=== PATIENT | female | born 1995 | race Caucasian/White ===

== ENCOUNTER 2019-12-25 15:47 | Outpatient (CLI) | payer OTHER, SELFPAY ==
--- NOTE | ~2019-12-25 | US_ITS ---
EXAMINATION:US venous doppler LE RT INDICATION:Right calf pain TECHNIQUE: Multiple grayscale, color flow and Doppler images of the right lower extremity deep venous systems were obtained and reviewed. COMPARISON:No prior studies for comparison. FINDINGS: The common femoral, superficial femoral and popliteal veins demonstrate normal respiratory variation, augmentation and compressibility. Color flow is also seen within the posterior tibial, pe roneal, greater saphenous and profunda veins. IMPRESSION: 1: No lower extremity deep venous thrombosis. Reviewed, dictated and finalized at location A.
== END 2019-12-25 15:48 | disposition home or self-care (01) ==
LOC: ANHIMG 15:53
PROVIDERS: PCP Nurse Practitioner Family; Visit Provider Nurse Practitioner Family
DX: M79.661 Pain in right lower leg (principal)
CPT/HCPCS: 93971

== ENCOUNTER 2021-06-30 11:43 | Outpatient (CLI) | payer BC, SELFPAY ==
--- NOTE | ~2021-06-30 | US_ITS ---
US OB <=14 wk fetus w TV DATE: 06/30/2021 12:34 INDICATION: Vaginal spotting starting today TECHNIQUE: Real-time imaging and Doppler analysis COMPARISON: None FINDINGS: The uterus measures 3.3 cm height, 5.8 cm AP and 6.7 cm transverse dimension. A normally shaped intrauterine gestational sac is identified. pole is detected with heart rate of 171 bpm. Yolk sac is identified. [place]-rump length averages 2.25 cm, consistent with 9 weeks +/- 6 days estimated gestational age, con sistent with VIDAL of 02/02/2022. No subchorionic abnormal fluid collection is noted. Right ovary measures 2.4 x 1.7 x 1.1 cm Left ovary measures 3.8 x 2.4 x 2.5 cm and contains a 2.9 x 1.7 x 1.8 cm cyst. No pelvic mass or abnormal pelvic free fluid collection is noted. IMPRESSION: Normal-appearing early intrauterine gestation Estimated gestational age of 9 weeks +/- 6 days; VIDAL: 02/02/2022 2.9 x 1.7 x 1.8 cm left ovarian cyst Reviewed, dictated and finalized at Location A. 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
== END 2021-06-30 11:44 | disposition home or self-care (01) ==
LOC: ANHIMG 11:47
PROVIDERS: PCP Nurse Practitioner Family; Visit Provider Obstetrics & Gynecology
DX: O20.9 Hemorrhage in early pregnancy, unspecified (principal); Z3A.00 Weeks of gestation of pregnancy not specified
CPT/HCPCS: 36415; 76801; 76817; 86850; 86900; 86901

== ENCOUNTER 2021-11-12 18:20 | Observation (INO) | payer BC, SELFPAY ==
[2021-11-12 18:45] VITALS: BP 128/76; PULSE 84
[2021-11-12 19:00] VITALS: BP 119/59; PULSE 79
[2021-11-12 19:16] VITALS: BP 128/50; PULSE 88
--- NOTE | 2021-11-12 19:27 | PC.NURSE ---
Dr Gleason notified of post fall, reactive tracing and no contractions or c/o at this time. Ok to dc home after one hour of monitoring.
[2021-11-12 19:30] VITALS: BP 104/65; PULSE 74
--- NOTE | 2021-12-03 10:46 | PM.OBTRLD ---
OB - Triage/Final Diagnosis Visit Information Comments/Additional reasons for admission: I have assessed the risk for this patient, Clarita Lebron, and determined that she would benefit from observation care. Final Diagnosis (1) Status post fall: Code(s): Z91.81 - History of falling Status: Acute
== END 2021-11-12 19:41 | disposition home or self-care (01) ==
PROVIDERS: Admitting Provider Obstetrics & Gynecology; PCP Nurse Practitioner Family; Visit Provider Obstetrics & Gynecology
DX: O9A.219 Injury, poisoning and certain other consequences of external causes complicating pregnancy, unspecified trimester (principal); Z3A.00 Weeks of gestation of pregnancy not specified; W19.XXXA Unspecified fall, initial encounter
CPT/HCPCS: G0378; G0379

== ENCOUNTER 2022-01-15 15:53 | Observation (INO) | payer BC, SELFPAY ==
--- NOTE | 2022-01-15 16:00 | OBADM ---
This patient, Clarita Lebron, admitted to the OB room Labor/Delivery/Recovery 120 for observation. Patient/family oriented to hospital policies and general routines including ID bracelet, bed and alarms, visiting hours, pain management, procedures, bathroom and other care routines, personal items, smoking policy, room service/diet, and visiting hours. Patient/Family are encouraged to report perceived risks to care and to ask questions if they do not understand what they are told or what they should do.
--- NOTE | 2022-02-21 22:37 | PM.OBTRLD ---
OB - Triage/Final Diagnosis Visit Information Reason for evaluation: threatened labor Comments/Additional reasons for admission: I have assessed the risk for this patient, Clarita Lebron, and determined that she would benefit from observation care.
== END 2022-01-15 17:27 | disposition home or self-care (01) ==
PROVIDERS: Admitting Provider Obstetrics & Gynecology; PCP Nurse Practitioner Family; Visit Provider Obstetrics & Gynecology
DX: O47.1 False labor at or after 37 completed weeks of gestation (principal); Z3A.37 37 weeks gestation of pregnancy
CPT/HCPCS: 84112; G0378; G0379

== ENCOUNTER 2022-01-17 06:32 | Outpatient (CLI) | payer BC, SELFPAY ==
[2022-01-17] VITALS (20 sets, daily range): BP systolic 113–143; BP diastolic 62–80; PULSE 77–106; O2SAT 94–100
[2022-01-17] MEDS: TERBUTALINE SULFATE 1 MG/ML VIAL 0.25 MG SUB-Q (08:28)
--- NOTE | 2022-01-17 08:30 | PC.NURSE ---
Dr. Gleason at the bedside discussing risk and benefits of external version. Ultrasound at the bedside. pt has no question at this time.
--- NOTE | 2022-01-25 07:05 | W.PM.PROC2 ---
Procedure Note - Detailed Date of Procedure 01/25/22 Pre-op Diagnosis Breech presentation Post-op Diagnosis Same Procedure Performed External cephalic version Surgeon Tahir Gleason MD Anesthesia None Indications Breech presentation Findings Infant confirmed in breech position immediately prior to procedure Description of Procedure Patient had a saline lock inserted. NST reactive. After informed consent obtained. Questions answered. She was offered spinal placement and discussed risk benefit of this and she declined. Bedside ultrasound confirms breech presentation. Head flexed in right upper quadrant. She was placed in position supine with head tilted down. She was given SQ .25mg terbutaline. The version was attempted and the head got to mid right side and reverted back to upper uterus. The heart rate was assessed throughout and noted to be normal. This was attempted two more times and no the head did not get past mid right lateral uterus. She was taken out of tilt position and monitored for an hour. tracing normal. She was discharged to home after over an hour of reassuring monitoring. Discussed post procedure precautions. kick count precautions. We discussed that we will discuss surgery date for for breech at her next visit. Complications No immediate complications Condition Stable Disposition No change [facility] Billing Surgery - Charge Forward: Surgery Billing
== END 2022-01-17 09:46 | disposition home or self-care (01) ==
LOC: ANHOBOP 06:37 → ANHLDR 06:37
PROVIDERS: PCP Nurse Practitioner Family; Visit Provider Obstetrics & Gynecology
DX: O32.1XX0 Maternal care for breech presentation, not applicable or unspecified (principal); Z3A.00 Weeks of gestation of pregnancy not specified
CPT/HCPCS: 59412; 96372; 99199; J3105

== ENCOUNTER 2022-01-24 10:38 | Outpatient (RCR) | payer BC, SELFPAY ==
[2022-01-24 11:25] VITALS: BP 128/65; PULSE 83
== END 2022-02-11 14:58 | disposition home or self-care (01) ==
LOC: ANHOBOP 10:38
PROVIDERS: PCP Nurse Practitioner Family; Visit Provider Obstetrics & Gynecology
DX: O26.86 Pruritic urticarial papules and plaques of pregnancy (PUPPP) (principal); Z3A.38 38 weeks gestation of pregnancy
CPT/HCPCS: 59025

== ENCOUNTER 2022-01-28 00:01 | Inpatient (IN) | payer BC, SELFPAY ==
[2022-01-28] VITALS (145 sets, daily range): BP systolic 95–161; BP diastolic 40–126; PULSE 59–142; RESP 16–18; TEMP 36.1–36.9; O2SAT 82–100; BMI 28.3
--- NOTE | 2022-01-28 00:27 | LDADM ---
This patient, Clarita Lebron, was admitted to Labor/Delivery/Recovery 103 on 01/28/22 at 00:01. Plans for labor, pain management and were discussed with patient. Patient/family oriented to hospital policies and general routines including ID bracelet, bed and alarms, visiting hours, pain management, procedures, bathroom and other care routines, personal items, smoking policy, room service/diet and guest tray routines, security routines, and visiting hours. Patient/Family are encouraged to report perceived risks to care and to ask questions if they do not understand what they are told or what they should do. See OBIX for further documentation.
--- NOTE | 2022-01-28 00:29 | P.PNAN_ITS ---
Anes - Eval Pre Procedure Procedure: labor epidural Date/Time: 01/28/22 00:29 Surgeon: judy Pre Op Diagnosis: IOL Patient Data Age: 26 Gender: F Height: Weight: Allergies Allergy/AdvReac Type Severity Reaction Status Date / Time No Known Allergies Allergy Verified 01/24/22 09:25 Home Medications Medication Instructions Recorded Confirmed Type prenat.vits,joyce,[id number] 1 tablet PO DAILY 06/30/21 01/23/22 History Patient hx anesthesia problems: none Family hx anesthesia problems: none Results Review: All pre-operative results and documents have been reviewed as part of the pre- operative evaluation. PMFSH Family History Family History Mother Breast cancer Grandparent Diabetes mellitus Social History Social History Smoking status: Never smoker Alcohol intake: never Substance use: never Spiritual care concerns: No Exam Day of Procedure 01/28/22 00:29
[2022-01-28] MEDS: AMPICILLIN 2 GM/NS 100 ML 2 GM/100 ML BAG IVPB (00:35)
[2022-01-28] MEDS: LACTATED RINGERS 1,000 ML 125 ML IV CONT ×3 (00:36→08:54)
[2022-01-28 00:39] LABS: Basophils Absolute Auto 0.1 K/mm3 (0.0-0.1); Basophils Percent Auto 0.4 % (0.2-1.2); Eosinophils Absolute Auto 0.3 K/mm3 (0-0.3); Eosinophils Percent Auto 2.1 % (0-4.4); Hematocrit 35.3 % (37.0-47.0); Hemoglobin 11.4 g/dL (12.0-15.0); Immature Granulocyte Absolute 0.08 K/mm3 (0.00-0.031); Immature Granulocyte Percent A 0.6 % (0-0.5); Lymphocytes Absolute Auto 2.36 K/mm3 (0.9-3.2); Lymphocytes Percent Auto 18.7 % (18.3-44.2); Mean Corpuscular HGB Conc 32.3 g/dl (32-36); Mean Corpuscular Hemoglobin 28.7 pg (26-34); Mean Corpuscular Volume 88.9 fl (80-100); Mean Platelet Volume 12.1 fl (7.4-10.4); Monocytes Absolute Auto 0.8 K/mm3 (0.1-0.6); Monocytes Percent Auto 6.2 % (2.6-8.5); Neutrophils Absolute Auto 9.1 K/mm3 (1.3-6.7); Platelet Count Result 201 k/mm3 (150-375); Red Blood Count 3.97 M/mm3 (4.2-5.4); Red Cell Distribution Width 14.6 % (11.5-14.5); White Blood Count 12.6 K/mm3 (4.5-10.0)
[2022-01-28] MEDS: OXYTOCIN 30 UNITS/NS 500 ML 30 UNITS/500 ML BAG IV CONT (01:05)
[2022-01-28] MEDS: AMPICILLIN 1 GM/NS 50 ML 1 GM/50 ML BAG IVPB ×3 (04:28→12:30)
[2022-01-28] MEDS: diphenhydrAMINE HCl CAP 25 MG CAPSULE PO (04:57)
[2022-01-28] MEDS: fentaNYL CITRATE INJ (*CRX) 100 MCG/2 ML VIAL 50 MCG IV PUSH (07:36)
--- NOTE | 2022-01-28 08:46 | PM.IMHP ---
H&P: HPI History of Present Illness Date/Time: 01/28/22 08:46 Chief Complaint: Medical induction of labor Narrative: Patient is a G1 at 39 weeks by LMP 04/30/2021 with an EDC 02/04/2022 consistent with an 8 week ultrasound, admitted for MIL. PNC significant for single umbilical artery. She has been getting growth ultrasounds which have showed normal growth. She was breech last week. She had an unsuccessful version and then converted to vertex several days after attempted ECV. PNC also significant for PUPPS. Diagnosed last week. She has had reassuring tracing. Discussed risk benefits of induction. Labs reviewed. GBS positive. She has been informed of risks benefits of induction of labor and desires to proceed to induction at 39 weeks. Bedside ultrasound performed and confirmed vertex. Review of Systems Review of Systems: All systems reviewed & are unremarkable except as noted in HPI and below Constitutional: Constitutional: Reports no additional constitutional complaints and Denies headache(s) Eyes: Eyes: Denies spots in vision ENT: Reports system reviewed and no additional complaints, except as documented and Denies headache(s) Cardiovascular: Cardiovascular: Denies chest pain and Denies dyspnea Respiratory: Respiratory: Denies dyspnea Gastrointestinal: Gastrointestinal: Reports no additional gastrointestinal complaints Genitourinary: Genitourinary: Reports amenorrhea Musculoskeletal: Musculoskeletal: Reports no additional musculoskeletal complaints Integumentary/Breasts: Skin/Breast: Denies breast mass and Reports rash Neurologic: Denies headache(s) Psychiatric: Psychiatric: Reports no additional psychiatric complaints [facility] Family History Family History Mother Breast cancer Grandparent Diabetes mellitus Social History Social History Smoking status: Never smoker Second hand tobacco smoke exposure: No Alcohol intake: never Substance use: never Spiritual care concerns: No Meds Home Medications and Allergies Home Medications Medication Instructions Recorded Confirmed Type prenat.vits,joyce,[id number] 1 tablet PO DAILY 06/30/21 01/28/22 History Allergies Allergy/AdvReac Type Severity Reaction Status Date / Time No Known Allergies Allergy Verified 01/24/22 09:25 Vital Signs Vital Signs - 24 hr 01/28/22 00:49 01/28/22 01:01 01/28/22 01:08 Temperature 96.9 F L Pulse Rate 75 81 Blood Pressure 133/71 129/71 Pulse Oximetry 01/28/22 01:00 01/28/22 02:01 01/28/22 03:00 Temperature 98.3 F Pulse Rate 71 68 Blood Pressure 111/40 L 106/55 L Pulse Oximetry 01/28/22 04:00 01/28/22 05:00 01/28/22 05:01 Temperature 97.3 F L Pulse Rate 70 83 Blood Pressure 121/77 116/64 Pulse Oximetry 01/28/22 06:00 01/28/22 07:00 01/28/22 07:18 Temperature Pulse Rate 78 70 74 Blood Pressure 114/58 L 122/64 129/76 Pulse Oximetry 01/28/22 07:31 01/28/22 07:45 01/28/22 07:51 Temperature Pulse Rate 77 78 Blood Pressure 117/67 128/78 Pulse Oximetry 96 01/28/22 07:56 01/28/22 08:00 01/28/22 08:01 Temperature Pulse Rate 87 Blood Pressure 141/89 H Pulse Oximetry 92 100 01/28/22 08:02 01/28/22 08:03 01/28/22 08:06 Temperature Pulse Rate 92 98 80 Blood Pressure 145/71 H 139/92 H 141/67 H Pulse Oximetry 99 01/28/22 08:08 01/28/22 08:11 01/28/22 08:13 Temperature Pulse Rate 70 67 76 Blood Pressure 145/67 H 144/67 H 143/71 H Pulse Oximetry 100 01/28/22 08:16 01/28/22 08:18 01/28/22 08:21 Temperature Pulse Rate 75 73 68 Blood Pressure 140/69 140/65 147/77 H Pulse Oximetry 100 99 01/28/22 08:24 01/28/22 08:25 01/28/22 08:26 Temperature Pulse Rate 72 72 Blood Pressure 117/41 L 140/70 Pulse Oximetry 100 01/28/22 08:28 01/28/22 08:31 01/28/22 08:33 Temperature
[2022-01-28 11:30] LABS: Rapid Plasma Reagin Non-Reactive (NonReactive)
[2022-01-28] MEDS: SODIUM CHLORIDE 0.9% IV 300 ML 600 ML I-UTERINE (11:31)
--- NOTE | 2022-01-28 13:03 | PM.OBPNVD ---
OB - PN: Subj Subjective Date/time seen: 01/28/22 13:03 Interval history: fht 130 cat 1 ctx freq, IUPC requested due to inadequate monitoring of ctx with toco. AROM cervix /2, clear fluid. IUPC placed. OB - PN: Obj Data Labs CBC & Chem 7: 01/28/22 00:23 Labs: Laboratory Results - last 24 hr 01/28/22 01/28/22 01/28/22 00:23 00:23 00:23 WBC 12.6 H RBC 3.97 L Hgb 11.4 L Hct 35.3 L MCV 88.9 MCH 28.7 MCHC 32.3 RDW 14.6 H Plt Count 201 MPV 12.1 H Immature Gran % (Auto) 0.6 H Neut % (Auto) 72.0 Lymph % (Auto) 18.7 [place] % (Auto) 6.2 Eos % (Auto) 2.1 Baso % (Auto) 0.4 Lymph # (Auto) 2.36 Boundary # (Auto) 0.8 H Eos # (Auto) 0.3 Baso # (Auto) 0.1 Abs Immat Gran (auto) 0.08 H Absolute Neuts (auto) 9.1 H Absolute Nucleated RBC 0.0 Nucleated RBC % 0.0 RPR Non-reactive Blood Type A Positive Antibody Screen Negative OB - PN A/P Time Spent With Patient Time: Total time spent is greater than 50% in coordination of care (as documented) at patient's floor/unit and/or counseling patient:
--- NOTE | 2022-01-28 13:48 | PM.OBPNVD ---
OB - PN: Subj Subjective Date/time seen: 01/28/22 13:48 Interval history: I was called around noon due to moderate varible, cat 2, pt not on pit, has changed position. She is progressing. Approximately 1245 instructed to give patient O2. She continued to get the moderate variable, Cat 2. She was then checked and was rim. OB - PN: Obj Data Labs CBC & Chem 7: 01/28/22 00:23 Labs: Laboratory Results - last 24 hr 01/28/22 01/28/22 01/28/22 00:23 00:23 00:23 WBC 12.6 H RBC 3.97 L Hgb 11.4 L Hct 35.3 L MCV 88.9 MCH 28.7 MCHC 32.3 RDW 14.6 H Plt Count 201 MPV 12.1 H Immature Gran % (Auto) 0.6 H Neut % (Auto) 72.0 Lymph % (Auto) 18.7 [place] % (Auto) 6.2 Eos % (Auto) 2.1 Baso % (Auto) 0.4 Lymph # (Auto) 2.36 [place] # (Auto) 0.8 H Eos # (Auto) 0.3 Baso # (Auto) 0.1 Abs Immat Gran (auto) 0.08 H Absolute Neuts (auto) 9.1 H Absolute Nucleated RBC 0.0 Nucleated RBC % 0.0 RPR Non-reactive Blood Type A Positive Antibody Screen Negative OB - PN A/P Time Spent With Patient Time: Total time spent is greater than 50% in coordination of care (as documented) at patient's floor/unit and/or counseling patient:
--- NOTE | 2022-01-28 14:39 | PM.OBPRVD ---
OB - Delivery Note Procedure Delivery date: 01/28/22 Procedure: Procedures Operation Date: 02/04/22 09:00 <No data on this case meets the specified criteria> spontaneous vaginal delivery Events: Positive Group B Strep (GBS) and Other (single umbilical artery, PUPPS) Induction method: Per Pitocin Protocol Delivery augmentation: Rupture of Membranes Delivery monitor: External FHT and Internal Uterine Route of delivery: Episiotomy description: None Laceration Description: Labial (sulcus laceration requiring simple suture of 3.0 vicryl for hemostasis, hemostasis noted) Delivery repair: vicryl (3.0 vicry) Specimen: Yes (placenta and cord) Quantitative Blood Loss (ml): 150 Anesthesia type: Epidural Disposition: Floor Narrative: She was admitted for induction after midnight on 01/28. She had pitocin induction of labor. She had AROM the morning of 01/28. Her pitocin had been discontinued prior to this due to intolerance and she continued to contract and dilate spontaneously. Tracing was Cat 2, she progressed into active labor, she had some variable decels with spontaneous contractions, position changed, and O2 placed and she was soon complete. She pushed well and delivered a female infant. Baby Date of : 01/28/22 Time of : 14:19 Weeks of gestation at delivery: 39 Infant gender: Female Weight (pounds): 6 Weight (ounces): 8 presentation: compound (right hand) position: Right Occiput Anterior Placenta delivery description: Spontaneous Cord Vessel Description: 2 Vessels score one minute: 8 score five minutes: 8
[2022-01-28] MEDS: OXYTOCIN 30 UNITS/NS 500 ML 30 UNITS/500 ML BAG 125 UNITS IV CONT (15:02)
--- NOTE | 2022-01-28 15:48 | PC.NURSE ---
1548--Nipple shield provided to mother due to small nipple and 's inability to latch despite multiple attempts. Reviewed good handwashing, cleaning the nipple shield and application. Discussed with mom the nipple shield precautions, possible complications associated with the risks and benefits. Reviewed practicing with a nipple shield, then without and how to protect the milk supply and production. Mom and baby guide referred to as a resource for using a nipple shield. Mom voiced understanding of the importance of hand expression, nipple stimulation and initiating a pumping schedule if continues to nurse with the shield.
--- NOTE | 2022-01-28 17:20 | PC.NURSE ---
Patient transferred to post room #292 via wheelchair. Support person present. Oriented to unit, room, information board, rooming in, admission packet and security measures. Patient verbalizes understanding.
[2022-01-28] MEDS: IBUPROFEN 600 MG TABLET PO (17:52)
[2022-01-29] MEDS: IBUPROFEN 600 MG TABLET PO ×3 (00:13→15:44)
[2022-01-29 05:30] VITALS: BP 115/63; PULSE 79; RESP 16; TEMP 36.5; O2SAT 100
[2022-01-29 06:26] LABS: Hematocrit 29.1 % (37.0-47.0); Hemoglobin 9.3 g/dL (12.0-15.0)
[2022-01-29 08:00] VITALS: PULSE 16; RESP 16; O2SAT 99
[2022-01-29] MEDS: MULTIVIT/MIN/PREN/FOL AC/IRON TABLET 1 TAB PO (08:27)
[2022-01-29] MEDS: DOCUSATE SODIUM 100 MG CAPSULE PO ×2 (08:27→15:44)
[2022-01-29] MEDS: POLYSACCHARIDE IRON COMPLEX 150 MG CAPSULE PO ×2 (08:27→15:44)
[2022-01-29 08:53] VITALS: BP 110/66; PULSE 16; RESP 16; TEMP 36.8; O2SAT 99
--- NOTE | 2022-01-29 09:44 | WPDANLDPN2 ---
Anes-Prog Note L&D Date/Time: 01/29/22 09:44 Comfortable throughout: labor and delivery Neuraxial method: epidural Epidural/Spinal procedure site: clean & non-tender Neuro status: Neuro function grossly intact. Cardiovascular status: normal Respiratory status: normal Airway patency: baseline Mental status: baseline Post-Op hydration status: normal Vital Signs: Last Vital Signs Temp 36.8 C 01/29/22 08:53 Pulse 16 L 01/29/22 08:53 Resp 16 01/29/22 08:53 BP 110/66 01/29/22 08:53 Pulse Ox 99 01/29/22 08:53 O2 Del Method Room Air 01/29/22 08:00 Pain score (VAS): 07/05 I/O: Intake & Output 01/28/22 01/29/22 01/29/22 23:59 07:59 15:59 Intake Total 450 Output Total 55 Balance 395 Post-procedural complaints: none Patient feedback: Patient satisfied with anesthetic care.
--- NOTE | 2022-01-29 10:36 | PM.OBPNVD ---
OB - PN: Subj Subjective Date/time seen: 01/29/22 10:36 Patient doing well. Pain well controlled with medication. Minimal-moderate lochia. Voiding well. Ambulating without difficulty. Reports persistent itching reasonably controlled with Benadryl. Interval history: I was called around noon due to moderate varible, cat 2, pt not on pit, has changed position. She is progressing. Approximately 1245 instructed to give patient O2. She continued to get the moderate variable, Cat 2. She was then checked and was rim. OB - PN: Obj Data Labs CBC & Chem 7: 01/29/22 05:28 Labs: Laboratory Results - last 24 hr 01/28/22 01/29/22 00:23 05:28 Hgb 9.3 L Hct 29.1 L RPR Non-reactive OB - PN A/P Assessment and Plan (1) Normal spontaneous vaginal delivery: Code(s): O80 - Encounter for full-term uncomplicated delivery Status: Acute Assessment and Plan: PPD#1 doing well continue routine care Benadryl PRN anticipate dc home tomorrow Time Spent With Patient Time: Total time spent is greater than 50% in coordination of care (as documented) at patient's floor/unit and/or counseling patient: Exam Const: General: cooperative, healthy appearing, comfortable and no acute distress GI: Inspection: non-distended GI Palp: Yes Soft to palpation and No Tenderness to palpation present (GI) Other: fundus firm below umbilicus Skin: Other: rash on extensor surfaces of elbows bilaterally
[2022-01-29] MEDS: ACETAMINOPHEN 325 MG TABLET 650 MG PO ×2 (11:09→20:40)
[2022-01-29 12:30] VITALS: BP 118/61; PULSE 78; RESP 18; TEMP 35.9; O2SAT 100
[2022-01-29 20:45] VITALS: BP 117/62; PULSE 93; RESP 18; TEMP 36.3; O2SAT 99
[2022-01-30] MEDS: IBUPROFEN 600 MG TABLET PO ×2 (03:26→10:54)
[2022-01-30] MEDS: diphenhydrAMINE HCl CAP 25 MG CAPSULE PO (03:40)
[2022-01-30 08:00] VITALS: PULSE 106; RESP 18; O2SAT 98
[2022-01-30 08:05] VITALS: BP 127/75; PULSE 106; RESP 18; TEMP 37.1; O2SAT 98
--- NOTE | 2022-01-30 10:30 | P.PNOB_ITS ---
OB - PN: Subj Subjective Date/time seen: 01/30/22 10:30 Patient doing well. Minimal pain well controlled with m edication. Minimal lochia. Ambulating well. Voiding without difficulty. Still with itching, however, improved with topical Benadryl cream and occ PO Benadryl. Interval history: I was called around noon due to moderate varible, cat 2, pt not on pit, has changed position. She is progressing. Approximately 1245 instructed to give patient O2. She continued to get the moderate variable, Cat 2. She was then checked and was rim. OB - PN: Obj Data Labs CBC & Chem 7: 01/29/22 05:28 OB - PN A/P Assessment and Plan (1) Normal spontaneous vaginal delivery: Code(s): O80 - Encounter for full-term uncomplicated delivery Status: Acute Assessment and Plan: PPD#2 doing well dc home in stable condition emergency precautions reviewed f/u in office in 4-6 weeks for visit Time Spent With Patient Time: Total time spent is greater than 50% in coordination of care (as documented) at patient's floor/unit and/or counseling patient: Review of Systems Review of Systems: All systems reviewed & are unremarkable except as noted in HPI and below Exam 2 Const: General: cooperative, healthy appearing, comfortable and no acute distress GI: Inspection: non-distended GI Palp: Yes Soft to palpation and No Tenderness to palpation present (GI) Other: fundus firm below umbilicus Skin: Other: rash noted along extensor surface of elbows bilaterally Extrem: Right lower extremity: no edema Left lower extremity: no edema Other: no calf tenderness
--- NOTE | 2022-01-30 10:34 | PM.OBDSVD ---
DS: Admitting Diagnosis Discharge Date 01/30/22 Admitting Diagnosis IUP at 39w Induction of labor GBS positive OB - DS: Summary OB Procedures : None OB Procedures Intrapartum: Spontaneous Vag Delivery and GBS prophylaxis OB Procedures: : None Peripartum Data Procedures: Procedures Operation Date: 02/04/22 09:00 <No data on this case meets the specified criteria> Time Spent with Patient Time attestation: Total time spent providing and/or coordinating discharge services: DS: Data Data Completed and Pending Pending studies at discharge: Pending at discharge 01/28/22 15:38 Surgical [PTH] Routine Discharge Plan Discharge Attending physician on discharge: Carmina Sanderson Discharging Clinician: Carmina Sanderson Anticipated Discharge Date/Time: 01/30/22 10:35 Patient Disposition: Home, Self-Care Activity: pelvic rest Diet: regular Discharge Instructions: Call office ([phone]) to schedule a visit in 4-6 weeks. You may take Ibuprofen 600mg every 6 hours as needed for pain. Pain medication may make you constipated. It may be helpful to take an hkxh-gsf-[id number] stool softener, such as Colace and/or Senokot, along with the pain medication to help lessen constipation. Call office or go to ED for pain not controlled with medication, headache, chest pain, shortness of breath, fever, chills, persistent nausea or vomiting, severe abdominal pain, heavy vaginal bleeding >2 pads/hour, foul vaginal discharge or odor, or problems with your breasts. Patient Instructions: Antibiotic Form Stand Alone Forms: General Discharge Information Follow-up/Referrals: Tahir Gleason MD [Physician] - Discharge Medications: Continued prenat.vits,joyce,bud-xscr-[id number] Tablet 1 tablet PO DAILY Date of admission: 01/28/22 00:01 Primary Care Provider: DarenTashia Admitting Provider: Tahir Gleason Attending physician on admission: Tahir Gleason Condition: Stable
[2022-01-30] MEDS: TETANUS,DIPHTHERIA,AC PERTUSSIS ADULT (0.5 ML) BOOSTRIX IM (10:51)
[2022-01-30] MEDS: MULTIVIT/MIN/PREN/FOL AC/IRON TABLET 1 TAB PO (10:53)
[2022-01-30] MEDS: POLYSACCHARIDE IRON COMPLEX 150 MG CAPSULE PO (10:53)
[2022-01-30] MEDS: DOCUSATE SODIUM 100 MG CAPSULE PO (10:53)
--- NOTE | 2022-01-30 10:59 | PC.NURSE ---
Patient viewed the discharge video Mother & Baby Care, The First Two Weeks . Patient was given the opportunity and encouraged to ask questions. Patient verbalized understanding of information shared and has been given the mother/baby guide for home reference.
[2022-01-31 08:12] VITALS: BP 116/71; PULSE 87; RESP 16; TEMP 36.9; O2SAT 99
== END 2022-01-30 14:07 | disposition home or self-care (01) | DRG 807 ==
LOC: ANHLDR 15:00 → ANHOB2 01-30 10:36 → ANHLDR 02-01 08:03
PROVIDERS: Admitting Provider Obstetrics & Gynecology; PCP Nurse Practitioner Family; Visit Provider Student in an Organized Health Care Education/Training Program
DX: O76 Abnormality in fetal heart rate and rhythm complicating labor and delivery (principal); Z37.0 Single live birth; O99.824 Streptococcus B carrier state complicating childbirth; O32.6XX0 Maternal care for compound presentation, not applicable or unspecified; O26.86 Pruritic urticarial papules and plaques of pregnancy (PUPPP); O70.0 First degree perineal laceration during delivery; O69.89X0 Labor and delivery complicated by other cord complications, not applicable or unspecified; Z3A.39 39 weeks gestation of pregnancy
CPT/HCPCS: 36415; 85014; 85018; 85025; 86592; 86850; 86900; 86901; 88307; 90715; A9270; J0290; J2590; J2795; J3010; J7030; J7120

== ENCOUNTER 2023-01-25 15:16 | Outpatient (CLI) | payer BC, SELFPAY ==
--- NOTE | ~2023-01-25 | US_ITS ---
EXAMINATION: US OB <=14 wk fetus w TV INDICATION: O46.90 - Antepartum hemorrhage, unspecified, unspecified ... TECHNIQUE: Sonography of the pelvis was performed by transabdominal and transvaginal techniques. COMPARISON: None. RESULT: Uterus: 10.1 x 5.9 x 8.2 cm. Anteverted. Homogenous myometrium. Intrauterine gestational sac: Single present. Yolk sac: 0.48 cm . Embryo: Single present. [place] rump length: 1.89 cm, corresponding gestational age 8 weeks, 3 days. Gestational heart rate: present 167 bpm. The amniotic membrane is visible, which is normal at this s tage of development. Subgestational hematoma: Absent . Right ovary: 2.7 x 2.1 x 1.8 cm. Vascular flow is present. Involuting corpus luteal cyst. Left ovary: 2.3 x 1.1 x 1.3 cm. Vascular flow is present. No adnexal mass. Pelvis free fluid: None. IMPRESSION: Single, live intrauterine gestation. Estimated Gestational Age: 8 weeks, 3 days by crown rump length. VIDAL by ultrasound 09/03/2023. Reviewed, dictated and finalized at location K. IMPRESSION: Single, live intrauterine gestation. Estimated Gestational Age: 8 weeks, 3 days by crown rump length. VIDAL by ultras ound 09/03/2023.
== END 2023-01-25 15:17 | disposition home or self-care (01) ==
PROVIDERS: Visit Provider Obstetrics & Gynecology
DX: O46.91 Antepartum hemorrhage, unspecified, first trimester (principal); Z3A.08 8 weeks gestation of pregnancy
CPT/HCPCS: 76801; 76817

== ENCOUNTER 2023-09-04 11:01 | Outpatient (RCR) | payer BC, SELFPAY ==
--- NOTE | ~2023-09-04 | US_ITS ---
EXAMINATION: US OB BPP wo non-stress DATE: 09/04/2023 13:21 INDICATION: Past due date. TECHNIQUE: Real-time pelvic ultrasound was performed. COMPARISON: Ultrasound 01/25/2023 FINDINGS: There is a single living fetus in vertex presentation. The placenta is anterior. heart rate is 135 beats per minute (bpm). The amniotic fluid volume is subjectively normal. Biophysical profile performed by the technologist: breathing (30 sec sustained breathing in 30 minutes): 2 out of 2 movement (3 gross body movements in 30 minutes): 2 out of 2 tone (one episode of mlpdhks-xxabenryp-hurqzgv limb movement): 2 out of 2 Amniotic fluid pocket (2 cm): 2 out of 2 Total score: 8 out of 8 IMPRESSION: 1. Single living fetus in vertex presentation. 2. Biophysical profile 8 out of 8. Reviewed, dictated and finalized at location A.
[2023-09-04 12:57] VITALS: BP 114/78; PULSE 92
== END 2023-12-03 23:59 | disposition home or self-care (01) ==
LOC: ANHOBOP 11:01
PROVIDERS: Visit Provider Obstetrics & Gynecology
DX: O48.0 Post-term pregnancy (principal); Z3A.40 40 weeks gestation of pregnancy
CPT/HCPCS: 59025; 76819

== ENCOUNTER 2023-09-06 06:02 | Inpatient (IN) | payer BC, SELFPAY ==
[2023-09-06] VITALS (144 sets, daily range): BP systolic 73–141; BP diastolic 40–82; PULSE 66–140; RESP 16–18; TEMP 36.1–36.5; O2SAT 96–100; BMI 29.9
[2023-09-06 06:50] LABS: Basophils Absolute Auto 0.1 K/mm3 (0.0-0.1); Basophils Percent Auto 0.5 % (0.2-1.2); Eosinophils Absolute Auto 0.3 K/mm3 (0-0.3); Eosinophils Percent Auto 2.5 % (0-4.4); Hematocrit 36.9 % (37.0-47.0); Hemoglobin 11.7 g/dL (12.0-15.0); Immature Granulocyte Absolute 0.11 K/mm3 (0.00-0.031); Lymphocytes Absolute Auto 2.15 K/mm3 (0.9-3.2); Lymphocytes Percent Auto 18.8 % (18.3-44.2); Mean Corpuscular HGB Conc 31.7 g/dl (32-36); Mean Corpuscular Hemoglobin 28.4 pg (26-34); Mean Corpuscular Volume 89.6 fl (80-100); Mean Platelet Volume 12.2 fl (7.4-10.4); Monocytes Absolute Auto 0.6 K/mm3 (0.1-0.6); Monocytes Percent Auto 5.4 % (2.6-8.5); Neutrophils Absolute Auto 8.2 K/mm3 (1.3-6.7); Neutrophils Percent Auto 71.8 % (45.5-73.1); Platelet Count Result 145 k/mm3 (150-375); Red Blood Count 4.12 M/mm3 (4.2-5.4); Red Cell Distribution Width 19.6 % (11.5-14.5); White Blood Count 11.4 K/mm3 (4.5-10.0)
[2023-09-06] MEDS: LACTATED RINGERS 1,000 ML 125 ML IV CONT ×2 (06:59→07:52)
[2023-09-06] MEDS: OXYTOCIN 30 UNITS/NS 500 ML 30 UNITS/500 ML BAG IV CONT (07:08)
--- NOTE | 2023-09-06 07:16 | WPDANESEPP ---
Anes - Eval Pre Procedure Procedure: Labor epidural Date/Time: 09/06/23 07:16 Surgeon: Rosibel Preop Diagnosis: Pain during labor Pre Op Diagnosis: IOL Patient Data Age: 28 Gender: F Height: Weight: Last Vital Signs Pulse 82 09/06/23 07:01 BP 128/75 09/06/23 07:01 Allergies Allergy/AdvReac Type Severity Reaction Status Date / Time No Known Allergies Allergy Verified 09/04/23 10:17 Home Medications Medication Instructions Recorded Confirmed Type prenat.vits,joyce,brc-[id number] 1 tablet PO DAILY 06/30/21 08/22/23 History ferrous sulfate 325 mg (65 mg 325 mg PO DAILY 08/07/23 08/22/23 History iron) tablet Laboratory Tests 09/06/23 06:25 WBC 11.4 H K/mm3 (4.5-10.0) RBC 4.12 L M/mm3 (4.2-5.4) Hgb 11.7 L g/dL (12.0-15.0) Hct 36.9 L % (37.0-47.0) MCV 89.6 fl (80-100) MCH 28.4 pg (26-34) MCHC 31.7 L g/dl (32-36) RDW 19.6 H % (11.5-14.5) Plt Count 145 L k/mm3 (150-375) MPV 12.2 H fl (7.4-10.4) Immature Gran % (Auto) 1.0 H % (0-0.5) Neut % (Auto) 71.8 % (45.5-73.1) Lymph % (Auto) 18.8 % (18.3-44.2) [place] % (Auto) 5.4 % (2.6-8.5) Eos % (Auto) 2.5 % (0-4.4) Baso % (Auto) 0.5 % (0.2-1.2) Lymph # (Auto) 2.15 K/mm3 (0.9-3.2) [place] # (Auto) 0.6 K/mm3 (0.1-0.6) Eos # (Auto) 0.3 K/mm3 (0-0.3) Baso # (Auto) 0.1 K/mm3 (0.0-0.1) Abs Immat Gran (auto) 0.11 H K/mm3 (0.00-0.031) Absolute Neuts (auto) 8.2 H K/mm3 (1.3-6.7) Absolute Nucleated RBC 0.000 K/mm3 (0.0-0.012) Nucleated RBC % 0.0 % (0.0-0.2) RPR Pending Patient hx anesthesia problems: none Family hx anesthesia problems: none Results Review: All pre-operative results and documents have been reviewed as part of the pre-operative evaluation. [facility] Past Medical History Medical History History of vaginal delivery Family History Family History Mother Breast cancer Grandparent Diabetes mellitus Social History Social History Smoking status: Never smoker Second hand tobacco smoke exposure: No Alcohol intake: never Substance use: never Lack of Transportation: No Lack of Food: Never True Current Housing: I Have Housing Concerned About Future Housing: No Difficulty Paying Gas/Electric Bills: No Difficulty Paying for Meds: No Currently Unemployed: No Education: Associate Degree Difficulty w/ Childcare or Family Care: No Living arrangements: with family Occupation/Education: occupation Gender identity (if verbalized by the patient): Female Sexual Orientation (if Verbalized by the Patient): Straight or Heterosexual Spiritual care concerns: No Exam Day of Procedure 09/06/23 07:16 Neurological: alert and oriented
--- NOTE | 2023-09-06 07:20 | LDADM ---
This patient, Clarita Lebron, was admitted to Labor/Delivery/Recovery 105 on 09/06/23 at 06:02. Plans for labor, pain management and were discussed with patient. Patient/family oriented to hospital policies and general routines including ID bracelet, bed and alarms, visiting hours, pain management, procedures, bathroom and other care routines, personal items, smoking policy, room service/diet and guest tray routines, security routines, and visiting hours. Patient/Family are encouraged to report perceived risks to care and to ask questions if they do not understand what they are told or what they should do. See OBIX for further documentation.
--- NOTE | 2023-09-06 10:22 | PM.IMHP ---
H&P: HPI History of Present Illness Date/Time: 09/06/23 10:22 Chief Complaint: Augmentation of labor Narrative: Patient is a 28-year-old G 2 P1 at 40 weeks and 3 days by LMP of 11/27/2022 with an EDC of September 03 2023. She was initially scheduled for induction of labor but she was everardo prior to admission and her cervix had changed some from her last cervical exam. course uncomplicated. Labs reviewed. GBS negative. Review of Systems Review of Systems: All systems reviewed & are unremarkable except as noted in HPI and below Constitutional: Constitutional: Reports no additional constitutional complaints and Denies headache(s) Eyes: Eyes: Denies spots in vision ENT: Reports system reviewed and no additional complaints, except as documented and Denies headache(s) Cardiovascular: Cardiovascular: Denies chest pain and Denies dyspnea Respiratory: Respiratory: Denies dyspnea Gastrointestinal: Gastrointestinal: Reports no additional gastrointestinal complaints Genitourinary: Genitourinary: Reports amenorrhea Musculoskeletal: Musculoskeletal: Reports no additional musculoskeletal complaints Integumentary/Breasts: Skin/Breast: Denies breast mass and Denies rash Neurologic: Denies headache(s) Psychiatric: Psychiatric: Reports no additional psychiatric complaints [facility] Past Medical History Medical History History of vaginal delivery Family History Family History Mother Breast cancer Grandparent Diabetes mellitus Social History Social History Smoking status: Never smoker Second hand tobacco smoke exposure: No Alcohol intake: never Substance use: never Do You Feel Safe in your Home?: No Lack of Transportation: No Lack of Food: Never True Current Housing: I Have Housing Concerned About Future Housing: No Difficulty Paying Gas/Electric Bills: No Difficulty Paying for Meds: No Currently Unemployed: No Education: Don't Know Difficulty w/ Childcare or Family Care: No Living arrangements: with family Occupation/Education: occupation Gender identity (if verbalized by the patient): Female Sexual Orientation (if Verbalized by the Patient): Straight or Heterosexual Spiritual care concerns: No Meds Home Medications and Allergies Home Medications Medication Instructions Recorded Confirmed Type prenat.vits,joyce,zyc-mioh-owtvp 1 tablet PO DAILY 06/30/21 08/22/23 History ferrous sulfate 325 mg (65 mg 325 mg PO DAILY 08/07/23 08/22/23 History iron) tablet sennosides 25 mg tablet 25 mg PO DAILY PRN Constipation 09/06/23 09/06/23 History Allergies Allergy/AdvReac Type Severity Reaction Status Date / Time No Known Allergies Allergy Verified 09/04/23 10:17 Vital Signs Vital Signs - 24 hr 09/06/23 06:18 09/06/23 06:46 09/06/23 07:01 Temperature Pulse Rate 90 95 82 Respiratory Rate Blood Pressure 130/71 130/74 128/75 Pulse Oximetry Oxygen Delivery 09/06/23 07:16 09/06/23 07:31 09/06/23 07:06 Temperature 97.7 F Pulse Rate 87 86 Respiratory Rate 16 Blood Pressure 129/73 121/68 Pulse Oximetry Oxygen Delivery 09/06/23 07:52 09/06/23 07:57 09/06/23 08:01 Temperature Pulse Rate 97 Respiratory Rate Blood Pressure 140/82 Pulse Oximetry 100 100 Oxygen Delivery 09/06/23 08:02 09/06/23 08:06 09/06/23 08:07 Temperature Pulse Rate 83 88 Respiratory Rate Blood Pressure 126/65 119/60 Pulse Oximetry 100 100 Oxygen Delivery 09/06/23 08:10 09/06/23 08:11 09/06/23 08:12 Temperature Pulse Rate 89 96 Respiratory Rate Blood Pressure 73/48 L 105/65 Pulse Oximetry 99 Oxygen Delivery 09/06/23 08:13 09/06/23 08:16 09/06/23 08:17 Temperature Pulse Rate 91 95 Respiratory Rate Blood Pressure 118/64 108
--- NOTE | 2023-09-06 10:26 | PM.OBPNVD ---
OB - PN: Subj Subjective Date/time seen: 09/06/23 10:26 Interval history: Category 1 tracing. Cervical exam /- 2. Assisted rupture membranes, clear. OB - PN: Obj Data Labs 09/06/23 06:25 Labs: Laboratory Results - last 24 hr 09/06/23 06:25 WBC 11.4 H RBC 4.12 L Hgb 11.7 L Hct 36.9 L MCV 89.6 MCH 28.4 MCHC 31.7 L RDW 19.6 H Plt Count 145 L MPV 12.2 H Immature Gran % (Auto) 1.0 H Neut % (Auto) 71.8 Lymph % (Auto) 18.8 [place] % (Auto) 5.4 Eos % (Auto) 2.5 Baso % (Auto) 0.5 Lymph # (Auto) 2.15 [place] # (Auto) 0.6 Eos # (Auto) 0.3 Baso # (Auto) 0.1 Abs Immat Gran (auto) 0.11 H Absolute Neuts (auto) 8.2 H Absolute Nucleated RBC 0.000 Nucleated RBC % 0.0 Blood Type A Positive Antibody Screen Negative OB - PN A/P Time Spent With Patient Time: Total time spent is greater than 50% in coordination of care (as documented) at patient's floor/unit and/or counseling patient:
[2023-09-06 11:42] LABS: Rapid Plasma Reagin Non-Reactive (NonReactive)
[2023-09-06] MEDS: SILVER NITRATE (*SP) STICK 2 EACH TOPICAL (12:50)
[2023-09-06] MEDS: OXYTOCIN 30 UNITS/NS 500 ML 30 UNITS/500 ML BAG 125 UNITS IV CONT (13:04)
--- NOTE | 2023-09-06 13:41 | PM.OBPRVD ---
OB - Vaginal Delivery Note Procedure Delivery date: 09/06/23 Delivery augmentation: Pitocin Delivery monitor: External FHT Route of delivery: Episiotomy description: None Laceration Description: Other (superficial left labial superior ) Quantitative Blood Loss (ml): 150 Anesthesia type: Epidural Disposition: Floor Complications: No immediate complications Narrative: She was admitted for early labor. She was initially scheduled for induction but she was everardo and having moderate contractions on admission. She did get Pitocin started and she did get it an epidural placed on request. She then had assisted rupture membranes and she progressed to complete. She had uncomplicated vaginal delivery. [place] Baby Date of : 09/06/23 Time of : 12:39 Weeks of gestation at delivery: 40 Infant gender: Male Weight (pounds): 9 Weight (ounces): 0 presentation: vertex position: Right Occiput Anterior Placenta delivery description: Spontaneous Cord Vessel Description: 3 Vessels and Delayed Cord Clamping (60 sec) score one minute: 8 score five minutes: 9 AMG Delivery Billing Delivery Delivery: Delivery Charge
--- NOTE | 2023-09-06 16:27 | OBPPTRN ---
1609-Patient transferred to post room #284 via wheelchair. Support person present. Oriented to unit, room, information board, rooming in, admission packet and security measures. Patient verbalizes understanding.
[2023-09-06] MEDS: LORATADINE 10 MG TABLET PO (17:08)
[2023-09-06] MEDS: IBUPROFEN 600 MG TABLET PO ×2 (17:08→22:37)
[2023-09-07 00:05] VITALS: BP 108/61; PULSE 94; RESP 18; TEMP 36.6; O2SAT 99
[2023-09-07] MEDS: IBUPROFEN 600 MG TABLET PO ×3 (04:09→20:31)
[2023-09-07 04:36] VITALS: BP 115/63; PULSE 90; RESP 18; TEMP 36.6; O2SAT 100
[2023-09-07 05:52] LABS: Hematocrit 33.1 % (37.0-47.0); Hemoglobin 10.5 g/dL (12.0-15.0)
[2023-09-07 08:25] VITALS: BP 122/65; PULSE 84; RESP 16; TEMP 36.6; O2SAT 99
--- NOTE | 2023-09-07 08:33 | WPDANLDPN2 ---
Anes-Prog Note L&D Date/Time: 09/07/23 08:33 Neuro status: Neuro function grossly intact. Vital Signs: Last Vital Signs Temp 36.6 C 09/07/23 04:36 Pulse 90 09/07/23 04:36 Resp 18 09/07/23 04:36 BP 115/63 09/07/23 04:36 Pulse Ox 100 09/07/23 04:36 O2 Del Method Room Air 09/06/23 20:39 Pain score (VAS): 0 Patient feedback: Patient satisfied with anesthetic care.
--- NOTE | 2023-09-07 12:04 | PM.OBPNVD ---
OB - PN: Subj Subjective Date/time seen: 09/07/23 12:04 Interval history: She noticed more soreness at perineum last night. Patient comments: pain well controlled, tolerating diet and other (Decreasing lochia.) [place] baby status: doing well and nursing well [place] feeding status: exclusively breast feeding OB - PN: Obj Data Labs 09/07/23 04:04 Labs: Laboratory Results - last 24 hr 09/07/23 04:04 Hgb 10.5 L Hct 33.1 L OB - PN A/P Assessment and Plan (1) Vaginal delivery: Code(s): O80 - Encounter for full-term uncomplicated delivery Status: Acute (2) Hematoma of labia majora: Code(s): N90.89 - Other specified noninflammatory disorders of vulva and perineum Status: Acute Assessment and Plan: Will apply ice pack. Plan day: 1 Plan: routine care Comments: Patient doing well. Time Spent With Patient Time: Total time spent is greater than 50% in coordination of care (as documented) at patient's floor/unit and/or counseling patient: Exam Const: General: no acute distress Resp: Effort & Inspection: normal respiratory effort GI: Other: fundus firm at umbilicus : Other: Perineum- labia swelling bilateral, mild tender, not tense Extrem: General: normal to inspection and no clubbing, cyanosis or edema Psych: Affect: normal affect Other: Abd: fundus firm below umbilicus, nontender Perineum: bilateral labia majora bruised/mod swelling, not tense, no active bleeding lesion Ext: nontender
[2023-09-07] MEDS: DIBUCAINE 1% OINTMENT 30 GM TUBE 1 APPLIC TOPICAL (12:17)
[2023-09-07] MEDS: MULTIVIT/MIN/PREN/FOL AC/IRON TABLET 1 TAB PO (12:17)
[2023-09-07] MEDS: DOCUSATE SODIUM 100 MG CAPSULE PO (12:18)
[2023-09-07 12:40] VITALS: BP 105/52; PULSE 90; RESP 18; TEMP 37; O2SAT 99
--- NOTE | 2023-09-07 15:41 | PC.NURSE ---
[phone] Introductions were made, then consulted with patient to assess needs related to . Mother led the conversation with her?plans to feed?her infant, the?experience so far, separation from her initially, then infant rejoining them in the post room. Mother's experience with her first was not successful. Mother shares she delivered on a Monday, did not receive assistance and pump to feed. Encouraged understanding of the benefits of skin to skin (demonstrating unwrapping and placing upright on her chest), stimulating with massage touch, changing positions to encourage wakefulness, how to watch for early feeding cues, responsive feeding, feeding on demand (aiming for 8-12 times in 24 hours, about every 2-3 hours), milk production, building/maintaining a milk supply, duration of feeding, signs of adequate intake/output and how to record on the feeding sheet. Mother works well with her with encouragement and education. Reviewed positioning and ear, shoulder, hip alignment, supporting the breast to facilitate a deep latch, asymmetrical latch (off-center), leading with the chin with a big, open, wide gape and body close to mother. Infant latched optimally to the right breast in football position. Education given to the mother of how to visualize the suckling (with good rocking jaw motion), swallows (dropping of the lower jaw) and how to listen for drinking at the breast (the ka sound) which infant demonstrates. Infant was able to maintain latch without pain to mother protecting the nipple with optimal positioning, latching, however; the nipple is slightly misshaped after . Infants mouth assessment doesn't visually show a tight frenulum, however; the nipple is slightly flattened after the breastfeed. Reviewed comfort measures of healing with a warm, wet washcloth to rinse breast, then leave open to air-dry, good handwashing when or touching the breast/nipples to prevent infection. Mother voiced understanding of skin to skin, stimulating with massage touch, responsive feedings, hand expressed colostrum, talking to to encourage if it has been 2 -2.5 hours since the start of the last , to call if infant does not latch, or if there is discomfort with . Resources used for education were facilitated with the visual educational handouts/ tool/mom and baby guide. Inpatient/outpatient resources provided with feeding sheet, name written on the communication board, and the mom/baby guide. Parents voiced understanding of information, demonstrated learning and will call if there is a request for assistance. Reported to the Primary RN. [phone] Consulted with patient to assess needs related to . Reviewed positioning and alignment, supporting breast, off-centered (asymmetrical latch) and leading with the chin with big, open, wide gape. latched optimally to the left, then the right breast in football position. Education given to the mother of how to visualize the suckling (with good rocking jaw motion) swallows (dropping of the lower jaw) and how to listen for drinking at the breast (the ka sound). The was able to maintain latch without discomfort to mother, however; the nipple is slightly misshaped when infant is detached. Mother shared that the nipple pain after the initial discomfort subsides to a 3-4. Nipple care reviewed with optimal latch, good positioning and using clean hands when touching her breast. Suggestion was made for mother to consider with cross cradle positioning until learns to latch without misshaping the nipple to prevent reoccurring misshaping in the same area of the nipple. Resources used to facilitate learning were used from the visual handouts/ tool. Mother has an outpatient LC appt to work with to prepare for community support if needed. Mother voiced
[2023-09-07 20:25] VITALS: BP 92/76; PULSE 89; RESP 20; TEMP 36.5; O2SAT 98
[2023-09-08 09:00] VITALS: BP 121/75; PULSE 83; RESP 16; TEMP 36.9; O2SAT 99
--- NOTE | 2023-09-08 09:37 | PM.OBPNVD ---
OB - PN: Subj Subjective Date/time seen: 09/08/23 09:37 Interval history: She noticed more soreness at perineum last night. Patient comments: pain well controlled, tolerating diet and other (Decreasing lochia.) [place] baby status: doing well and nursing well [place] feeding status: exclusively breast feeding OB - PN: Obj Data Labs 09/07/23 04:04 OB - PN A/P Plan day: 2 Plan: discharge home and other Comments: Patient doing well. Follow up 4-6 weeks. Discharge instructions provided. Labial swelling, not expanding. Continue Ice pack. Follow up in one week. Time Spent With Patient Time: Total time spent is greater than 50% in coordination of care (as documented) at patient's floor/unit and/or counseling patient: Time with patient: less than 15 minutes Exam Psych: Affect: normal affect Other: Abd: fundus firm below umbilicus, nontender Perineum: labia swelling unchanged, not tense Ext: nontender
[2023-09-08] MEDS: MULTIVIT/MIN/PREN/FOL AC/IRON TABLET 1 TAB PO (10:03)
[2023-09-08] MEDS: DOCUSATE SODIUM 100 MG CAPSULE PO (10:03)
[2023-09-08] MEDS: IBUPROFEN 600 MG TABLET PO (10:03)
--- NOTE | 2023-09-08 16:15 | PC.NURSE ---
[phone] Consulted with mother concerning needs and she shared her ability to independently latch optimally without pain. Mother is feeding appropriately for growth of infant and understands stimulating infant to eat if needed. Infant has had appropriate feedings in the last 24 hours meets the outcomes for weight, output, blood sugar and jaundice at this time. Reinforced understanding of milk production, transition of milk, signs of adequate intake, transition of stool, prevention/relief of engorgement, plugged ducts, mastitis, responsive watching for feeding cues, the different methods of stimulating to breastfeed 1-3 hours after the start of the last feeding, community resources, and when to call a provider using the resource of the feeding sheet along with the mom and baby guide. Mother voiced understanding of the information shared, is confident to continue effectively her at home, when to call for assistance, denies any additional assistance or education at this time. Reported to the Primary RN.
--- NOTE | 2023-10-10 13:34 | PM.OBDSVD ---
DS: Admitting Diagnosis Discharge Date 09/08/23 Admitting Diagnosis Labor DS: Discharge Diagnosis Discharge Diagnosis (1) Vaginal delivery: Code(s): O80 - Encounter for full-term uncomplicated delivery Status: Acute OB - DS: Summary Hospital Course Hospital Course: She was admitted in labor. She had an uncomplicated vaginal delivery. She sustained a superficial left labial laceration which did not require suture. No significant pain. She did develop swelling of the left labia the next day. Ice packs applied. On day 2 no increase in swelling. She was discharged to home with baby on day 2. OB Procedures : Ultrasound OB Procedures Intrapartum: Spontaneous Vag Delivery OB Procedures: : None Peripartum Data Infant Delivery Method: Natural Vaginal Laceration Description: Other (superficial left labial superior ) Episiotomy description: None complications: none Status at Discharge Functional status at discharge: independent ambulation Time Spent with Patient Time attestation: Total time spent providing and/or coordinating discharge services: Exam Const: General: cooperative Orientation/consciousness: oriented to person, oriented to place and oriented to time HENMT: Face/Nose/Sinus: Normal external nose present Eyes: General: appearance normal, both eyes and all related structures Resp: Effort & Inspection: normal respiratory effort GI: Inspection: normal to inspection Skin: General skin exam: normal color Neuro: General: oriented to person, oriented to place and oriented to time Extrem: General: normal to inspection and no calf tenderness Psych: Appearance: grossly normal Mental Status: mental status grossly normal Discharge Plan Discharge Attending physician on discharge: Tahir Gleason Consulting providers: Sylvia Baptiste; Caitlin Pantoja Discharging Clinician: Tahir Gleason Anticipated Discharge Date/Time: 09/08/23 09:40 Patient Disposition: Home, Self-Care Activity: may shower, no straining and pelvic rest Diet: regular Discharge Instructions: Education: Mom and Baby Guide Given to: Mother Follow-Up: Call your delivering provider's office for an appointment to be seen in: 1 Week Mom and baby should come to the [facility] for the follow-up appointment. Appointment Date/Time: September 11, 2023 at 8:00 am What to expect at your follow-up visit: Physical Assessment Call [phone] if you are unable to keep your appointment time. BREAST CARE: * Wear a snug supportive bra. * For engorgement discomfort: Breast Feeding: * Apply warm moist washcloths * Express milk as needed to relieve engorgement * Wear loose clothing * For sore nipples: * Identify correct latch-on * Apply warm moist washcloths before and after nursing * Air dry nipples after nursing * May apply Lansinoh cream to nipples PERINEAL CARE: * Until bleeding stops, use your rai bottle after urinating * Change your pad frequently throughout the day * You may take sitz baths several times a day (fill your bathtub with warm water and soak for 20 minutes.) Do NOT bathe in the water * No tub baths until seen by your physician - You may shower ACTIVITY: * Rest as much as possible. * Do not exercise or lift anything heavier than your baby (such as laundry or other children.) * Avoid stairs or driving as much as possible. * Do not put anything into the vagina. No douching, tampons, or sexual activity until seen by physician. NOTIFY PHYSICIAN IF YOU HAVE ANY QUESTIONS OR IF ANY OF THE FOLLOWING SYMPTOMS OCCUR: * If your incision becomes red, swollen, or more painful than what you have experienced in the hospital. * If your vaginal bleeding becomes foul smelling. * If your vaginal bleeding becomes more heavy than a period or if your bleeding changes from pink to bright red.
--- OUTSIDE RECORDS SUMMARY | 2023-11-01 11:54 | XMS_ITS | Patient Health Record ---
Author Name Unknown Organization [facility] Address [address] [place] [address] Care Team Providers Care Taxi Driver Name Role Phone RoeltraceydevanDasha Primary Care Provider Unavailab yaima Rahman MD, FAAAAI, Jeff Unavailable [phone] Tashia Webb Unavailable Unavailable Reason For Referral No Information Medications Medication SIG (Take, Route, Frequency, Duration) Notes Start Date End Date Status dexAMETHasone ophthalmic 0.1% 2 gtt in each affected eye bid Active Sprintec 35 mcg-0.25 mg 1 tab(s) orally once a day Active Social History Tobacco Use: Social History Observation Description Date Details (start date - stop date) Never Smoker NA - NA Smoking Smart Form: Question Answer Notes Are you a: never smoker Problems Problem Type SNOMED Code ICD Code Onset Dates Problem Status W/U Status Risk Notes Problem Chronic follicular conjunctivitis (56148465) Chronic follicular conjunctivitis, 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
== END 2023-09-08 13:57 | disposition home or self-care (01) | DRG 807 ==
LOC: ANHLDR 06:54 → ANHOB2 16:19
PROVIDERS: Admitting Provider Obstetrics & Gynecology; PCP Physician Assistant; Visit Provider Obstetrics & Gynecology
DX: O70.0 First degree perineal laceration during delivery (principal); Z37.0 Single live birth; Z3A.40 40 weeks gestation of pregnancy
CPT/HCPCS: 36415; 85014; 85018; 85025; 86592; 86850; 86900; 86901; A9270; J2590; J2795; J7120